=== PATIENT | female | born 1955 | race Caucasian/White ===

== ENCOUNTER 2016-08-28 11:27 | Outpatient (CLI) | payer BC ==
[2016-08-28 12:28] LABS: #Basophils 0.1 thou/uL (0.0-0.2); #Eosinphils 0.1 thou/uL (0.0-0.7); #Lymphocytes 2.2 thou/uL (1.20-3.40); #Monocytes 0.5 thou/uL (0.11-0.59); #Neutrophils 3.3 thou/uL (1.40-6.50); %Basophils 0.9 % (0.0-1.0); %Eosinophils 1.9 % (0.0-10.0); %Monocytes 8.3 % (0.0-10.0); Hematocrit 43.7 % (36.0-47.0); Mean Platelet Volume 8.2 fL (7.4-10.4); Red Blood Cell (RBC) Count 4.82 mill/uL (4.20-5.40); White Blood Cell (WBC) Count 6.2 thou/uL (4.8-10.8)
[2016-08-28 12:44] LABS: ALT (SGPT) 26 U/L (0-55); AST (SGOT) 20 U/L (5-34); Alkaline Phosphatase 96 U/L (40-150); Anion Gap 13 mmol/L (10-20); BUN (Urea Nitrogen) 14 mg/dL (9.8-20.1); Bilirubin, Total 0.5 mg/dL (0.2-1.2); Calc. Creatinine Clearance 0 mL/min (70-130); Calcium 10.1 mg/dL (7.8-10.44); Carbon Dioxide 27 mmol/L (23-31); Chloride 106 mmol/L (98-107); Estimated GFR-MDRD 69; Globulin 2.6 g/dL (2.4-3.5)
--- NOTE | 2016-08-28 17:38 | RAD ---
SI JOINTS 08/28/16 Three views showed no significant sclerosis or erosions of either SI joint. The joints are symmetric al. The sacrum appears intact. The arcuate lines appear normal. The visible portions of the surround ing bony pelvis were unremarkable. IMPRESSION: No significant finding. POS: HOME
--- NOTE | 2016-08-28 17:39 | RAD ---
RIGHT HIP THREE VIEWS 08/28/16 No fracture, dislocation, or acute bony change was seen. Some small osteophytes are present. The cordelia nt space is only minimally narrowed. The articular surfaces are smooth. IMPRESSION: Very minor arthritic changes. POS: HOME
--- NOTE | 2016-08-28 17:44 | RAD ---
LUMBAR SPINE THREE VIEWS 08/28/16 Scoliosis is present convexed left. Disc space narrowing is present at L2-3, L3-4, and to a lesser e xtent at L5-S1. Grade I spondylolisthesis of L5 on S1 appears to be present. I cannot tell for sure if there is spondylolysis of if this is completely due to degenerative change. No fractures were see n. Faint calcification of the aorta was noted. IMPRESSION: Degenerative changes including degenerative disc disease at multiple levels and mild spondylolisthes is at L5-S1. MRI would be useful in defining this further and looking for any neural impingement. POS: HOME
== END 2016-08-28 11:28 | disposition home or self-care (01) ==
LOC: BURRAD 11:27
PROVIDERS: ATTEND Family Medicine
DX: M46.1 Sacroiliitis, not elsewhere classified (principal); M54.5 Low back pain; M25.551 Pain in right hip; D64.9 Anemia, unspecified; E03.9 Hypothyroidism, unspecified; K25.9 Gastric ulcer, unspecified as acute or chronic, without hemorrhage or perforation; R10.13 Epigastric pain; M51.36 Other intervertebral disc degeneration, lumbar region; M43.17 Spondylolisthesis, lumbosacral region; M47.816 Spondylosis without myelopathy or radiculopathy, lumbar region
CPT/HCPCS: 36415; 72100; 72202; 80053; 84443; 85025

== ENCOUNTER 2016-10-29 10:14 | Outpatient (CLI) | payer BC, SELFPAY ==
[2016-10-29 16:36] LABS: MONO NEGATIVE CONTROL ZONE White (Negative) (White); MONO POSITIVE CONTROL Pink Line (Positive) (PINK/RED); Mononucleosis NEGATIVE (NEGATIVE)
[2016-10-29 16:44] LABS: Band 2 % (5-11); Eosinophils 1 % (0-10); Hemoglobin 14.2 g/dL (12.0-16.0); Lymphocytes 18 % (21-51); MDiff Complete? YES; Mean Corpuscular Hemoglobin 30.2 pg (27.0-31.0); Mean Corpuscular Volume 91.4 fl (81.0-99.0); Mean Platelet Volume 8.2 fL (7.4-10.4); Monocytes 13 % (0-10); Neutrophil 65 % (42-75); Platelet Count 275 thou/uL (130-400); RBC Distribution Width 13.2 % (11.5-14.5); White Blood Cell (WBC) Count 7.5 thou/uL (4.8-10.8)
== END 2016-10-29 10:15 ==
LOC: LABLEX 10:14
PROVIDERS: ATTEND Family Medicine
DX: J03.90 Acute tonsillitis, unspecified (principal); E03.9 Hypothyroidism, unspecified
CPT/HCPCS: 84443; 85025; 86308; 87070